=== PATIENT | male | born 1955 | race Two or more races ===

== ENCOUNTER 2018-09-29 06:16 | Day surgery (SDC) | payer OTHER ==
[~2018-09-29 06:16] MED LIST: ASA81 MG PO; CRESTOR40 MG PO; IRBESARTAN150 MG PO; TAMS0.4C PO; [UNRECOGNIZED DRUG - OTHER] IV
== END 2018-09-29 14:50 | disposition home or self-care (01) ==
LOC: CIR.AMB 06:16
DX: K40.30 Unilateral inguinal hernia, with obstruction, without gangrene, not specified as recurrent (principal)